=== PATIENT | male | born 1990 | race Caucasian/White ===

== ENCOUNTER 2018-08-01 16:38 | Emergency (ER) | payer OTHER ==
[2018-08-01 16:48] VITALS: BP 129/71
--- NOTE | 2018-08-01 16:48 | ED Physician Documentation ---
PD HPI LOWER EXT INJURY - Stated complaint Stated Complaint: L KNEE PX - Chief complaint Chief Complaint: Trauma Ext - History obtained from History obtained from: Patient - History of Present Illness PD HPI LOW EXT INJURY LOCATION: Left, Knee Type of injury: Twist (He was running for his physical training at work and had an abrupt feeling of a pull and pain in the posterior lower thigh and then into the knee area. He states his knee gave out on him and he fell forward. He had a slight twisting to it as well. He is having pain with walking. He denies any feeling of giving out or unreliability of the knee. He has had a prior ACL repair years ago. Is not sure the technique used whether it was a hamstring or such. He is concerned about injury to the ACL again.) Where injury occurred: Work Timing - onset: Today Worsened by: Moving, Other (walking) Associated symptoms: Swelling (lateral aspect of the knee.). No: Weakness, Numbness Contributing factors: Prior ortho surgery (ACL repair) Recently seen: Not recently seen Review of Systems Skin: denies: Abrasion (s), Laceration (s) Neurologic: denies: Focal weakness, Numbness PD PAST MEDICAL HISTORY - Past Medical History Cardiovascular: None Respiratory: None Neuro: None Endocrine/Autoimmune: None - Past Surgical History Ortho: ACL reconstruction - Present Medications Home Medications: Ambulatory Orders Medication Instructions Recorded Confirmed Naproxen 500 mg PO BID #20 tablet 08/01/18 - Allergies Allergies/Adverse Reactions: Allergies Allergy/AdvReac Type Severity Reaction Status Date / Time No Known Drug Allergies Allergy Verified 08/01/18 16:47 PD ED PE NORMAL - Vitals Vital signs reviewed: Yes - General General: Alert and oriented X 3, No acute distress, Well developed/nourished - Derm Derm: Normal color, Warm and dry, No rash - Extremities Extremities: No edema, Other (There is perhaps a slight effusion of the left knee but very minimal. There is some laxity for stress testing of the ACL but it does not cause any pain. Realistically it may not hurt if he has had an ACL reconstruction so may not have the same pain fibers. There is no laxity nor pain for collateral ligament testing.Meniscal stress testing does not cause any pain. There is no clicking or popping with range of motion. The hamstrings are not tender.) Results - Vitals Vitals: Vital Signs - 24 hr 08/01/18 16:45 Temperature 37.0 C Heart Rate 110 H Respiratory 12 Rate Blood Pressure 129/71 O2 Saturation 99 Oxygen O2 Source Room air - Rads (name of study) left knee Radiology: Prelim report reviewed, EMP read contemporaneously, See rad report PD MEDICAL DECISION MAKING - ED course Complexity details: reviewed results (Since he has had a prior ACL repair with some pins to hold it, I did get an x-ray to see if there is any dislodgment of those. Otherwise he may have some ACL strain but I do not appreciate a tear per se. I think his symptoms are more likely to have been a hamstring strain. There is slight tenderness at the lateral hamstring but no laxity. There is very slight effusion in the knee. We will give him a knee brace. He did not feel he needed crutches. We will have him take some anti-inflammatories. [place] or orthopedics next week for reevaluation and reexam of the knee. The screws and pins appear in place. No acute bony abnormality.) Departure - Departure Disposition: 01 Home, Self Care Clinical Impression: Knee sprain Qualifiers: Encounter type: initial encounter Involved ligament of knee: unspecified ligament Laterality: left Qualified Code(s): S83.92XA - Sprain of unspecified site of left knee, initial encounter Condition: Stable Record reviewed to determine appropriate education?: Yes Instructions: ED Sprain Knee Follow-Up: SHANIKA Dempsey [Provider Group] Prescriptions: Naproxen 500 mg PO BID #20 tablet Comments: The pin and screw appear in place on your x-ray. Consider the possibility of a hamstring strain or even meniscal type problem. There is a little bit of laxity of your ACL on exam but that may be just postoperative. At this point I would have you use the knee brace when up and around for the next 5 days or so. Use some anti-inflammatories such as naproxen twice daily. Add Tylenol if needed for pain. Follow-up with your primary care or orthopedics early next week for reexam and see if it needs further treatment. If it is a simple sprain it may be doing much better by that time. Forms: Activity restrictions Discharge Date/Time: 08/01/18 18:09
[2018-08-01] MEDS ORDERED: NAPROXEN 250 MG TABLET PO STA (17:05)
--- NOTE | 2018-08-01 17:52 | XRAY Report ---
Reason: knee injury while running today Procedure Date: 08/01/2018 Accession Number: [id number] / [id number] Procedure: XR - Knee 3 View LT CPT Code: FULL RESULT: EXAM: LEFT KNEE RADIOGRAPHY EXAM DATE: 08/01/2018 05:38 PM. CLINICAL HISTORY: Knee injury while running today. COMPARISON: None. TECHNIQUE: 3 views. FINDINGS: Bones: Prior fixation screw/metallic hardware seen at the medial left tibial condyle and distal left lateral femoral condyle. Joints: Suggestion of a small left knee joint effusion. Soft Tissues: Moderate soft tissue swelling is seen at the left knee. IMPRESSION: Suggestion of a small left knee joint effusion. No malalignment or acute displaced fracture. Hardware is well positioned. No uriel-hardware lucency to suggest loosening. RADIA
== END 2018-08-01 18:09 | disposition home or self-care (01) ==
LOC: ED 16:38
DX: S83.92XA Sprain of unspecified site of left knee, initial encounter (principal); X50.1XXA Overexertion from prolonged static or awkward postures, initial encounter; W18.30XA Fall on same level, unspecified, initial encounter; Y93.02 Activity, running; Y99.0 Civilian activity done for income or pay
CPT/HCPCS: 73562; 99283; A9270

== ENCOUNTER 2018-08-26 09:42 | Outpatient (CLI) | payer OTHER ==
--- NOTE | 2018-08-26 15:43 | MRI Report ---
Reason: PAIN IN LEFT KNEE Procedure Date: 08/26/2018 Accession Number: [id number] / [id number] Procedure: MRI - Knee LT W/O CPT Code: FULL RESULT: EXAM: LEFT KNEE MRI WITHOUT CONTRAST EXAM DATE: 08/26/2018 10:48 AM. CLINICAL HISTORY: Pain in left knee. COMPARISON: Left knee 3 views 08/01/2018. TECHNIQUE: Multiplanar, multisequence T1-weighted and fluid-sensitive sequences of the knee without contrast. Other: None. FINDINGS: Bones and Articular Cartilage: Marginal osteophytes at the femoral condyles, patella, and femoral trochlea. There is a nondisplaced, acute or subacute-appearing fracture at the anterior aspect of the lateral tibial plateau. Bone contusion at the anterior aspect of the medial femoral condyle. Grade 2 chondromalacia at the posterior aspect of the lateral tibial plateau. Postoperative changes at the distal femur and proximal tibia from previous ACL reconstruction. Metallic hardware at the proximal tibia. Focal full-thickness articular cartilage fissure or delamination injury at the median ridge of the patella. Medial Meniscus: Vertically oriented peripheral tear at the posterior third of the posterior horn. There is a small 7 x 2 x 3 mm ossicle adjacent to the posterolateral aspect of the posterior horn. Lateral Meniscus: Vertically oriented tear at the posterior horn. Free edge fraying at the posterior horn. Cruciate Ligaments: Degenerative signal within the ACL graft. The posterior cruciate ligament is unremarkable. Collateral Ligaments: The medial collateral and lateral collateral ligamentous structures are intact. Tendons: The quadriceps, patellar, semimembranosus, and popliteus tendons are unremarkable. Musculature: No edema or fatty atrophy. Other: Small joint effusion. Small popliteal cyst. There is an approximately 5 x 5 x 5 mm loose body at the posteromedial aspect of the lateral compartment (coronal image 21, sagittal image 13, and axial image 14). The medial and lateral retinacula are intact. Scar tissue at the infrapatellar fat pad. IMPRESSION: 1. Tricompartmental osteoarthritis. 2. Nondisplaced, acute or subacute fracture at the anterior aspect of the lateral tibial plateau. 3. Previous ACL reconstruction. The ACL graft is degenerated, but intact. 4. Vertically oriented peripheral tear at the posterior third of the posterior horn medial meniscus. Small ossicle adjacent to the posterolateral aspect of the posterior horn medial meniscus. 5. Vertically oriented tear at the middle third of the posterior horn lateral meniscus. Free edge fraying at the posterior horn lateral meniscus. 6. Small joint effusion and popliteal cyst. 7. Loose body at the posteromedial aspect of the lateral joint compartment. RADIA
== END 2018-08-26 09:43 | disposition home or self-care (01) ==
LOC: DI 09:42
PROVIDERS: ATTEND Family Medicine
DX: S82.145A Nondisplaced bicondylar fracture of left tibia, initial encounter for closed fracture (principal); S83.242A Other tear of medial meniscus, current injury, left knee, initial encounter; S83.282A Other tear of lateral meniscus, current injury, left knee, initial encounter; M17.12 Unilateral primary osteoarthritis, left knee; M71.22 Synovial cyst of popliteal space [Baker], left knee

== ENCOUNTER 2019-01-31 08:28 | Day surgery (SDC) | payer OTHER ==
--- NOTE | 2019-01-31 08:28 | ANESTHESIA ---
Pre-Anesthesia VS, & Labs - Diagnosis L knee meniscus and ACL tears - Procedure L achilles tendon repair Vital Signs: Last Vital Signs Temp 36.5 C 01/31/19 08:35 Pulse 74 01/31/19 08:35 Resp 16 01/31/19 08:35 BP 134/73 H 01/31/19 08:35 Pulse Ox 98 01/31/19 08:35 Height 5 ft 5 in Weight (kg) 81.65 kg Body Mass Index 29.9 - NPO >8 hours Home Medications and Allergies Home Medications: Ambulatory Orders No Known Home Medications 01/23/19 No Known Home Medications 01/23/19 Allergies/Adverse Reactions: Allergies Allergy/AdvReac Type Severity Reaction Status Date / Time No Known Drug Allergies Allergy Verified 01/23/19 12:23 Anes History & Medical History - Anesthetic History Anesthesia Complications: reports: No previous complications Family history of Anesthesia Complications: Denies Family history of Malignant Hyperthermia: Denies - Medical History Cardiovascular: reports: None Pulmonary: reports: None Gastrointestinal: reports: None Urinary: reports: None Neuro: reports: None Musculoskeletal: reports: Other Endocrine/Autoimmune: reports: None Skin: reports: None Smoking Status: Never smoker - Surgical History Orthopedic: ACL reconstruction Exam General: Alert, Oriented x3, Cooperative Dental: WNL Mouth Opening: Greater than 4 Fingerbreadths Neck Mobility: Normal Mallampati classification: I Thyromental Distance: 4-6 cm Respiratory: Lungs clear, Normal breath sounds, No respiratory distress Cardiovascular: Regular rate Neurological: Normal speech Mental/Cognitive Status: Alert/Oriented X3, Normal for patient Cognitive Status: Within normal limits Plan Anesthesia Type: General, Femoral Block Regional Block: Per Surgeon's request for Post Op pain control Consent for Procedure(s) Verified and Reviewed: Yes Code Status: Attempt Resuscitation ASA classification: 1-Healthy patient Is this case an emergency?: No
[2019-01-31] MEDS ORDERED: MIDAZOLAM 2 MG/2 ML VIAL IVP ONE (08:29)
[2019-01-31] MEDS ORDERED: DEXAMETHASONE 4 MG/ML VIAL IVP ONE (08:29)
[2019-01-31] MEDS ORDERED: PROPOFOL 200 MG/20 ML VIAL IVP ONE (08:29)
[2019-01-31] MEDS ORDERED: KETOROLAC 30 MG/ML VIAL IVP ONE (08:29)
[2019-01-31] MEDS ORDERED: HYDROmorphone 1 MG/ML SYRINGE IVP ONE (08:29)
[2019-01-31] MEDS ORDERED: LACTATED RINGERS 1,000 ML IV ONE ×2 (08:35→11:00)
[2019-01-31] MEDS ORDERED: EPINEPHrine 1 MG/ML AMP ONE (08:44)
[2019-01-31] MEDS ORDERED: CEFAZOLIN SODIUM IN 0.9 % NACL 2 GM/100 ML BAG IV ONE (08:53)
[2019-01-31] MEDS ORDERED: ROPIVACAINE 0.5% PF 20 ML AMPULE ONE (09:21)
[2019-01-31] MEDS: BUPIVACAINE 0.25% PF 30 ML VIAL ONE ×2 (10:06→12:08)
[2019-01-31] MEDS ORDERED: ONDANSETRON 4 MG/2 ML VIAL IVP PRN (12:25)
[2019-01-31] MEDS ORDERED: oxyCODONE 5 MG TABLET PO PRN (12:25)
[2019-01-31] MEDS: fentaNYL 100 MCG/2 ML VIAL ONE ×2 (12:36→12:41)
--- NOTE | 2019-01-31 12:49 | OPERATIVE REPORT ---
Operative Report - General Procedure Date: 01/31/19 - Procedure Note Estimated Blood Loss (mL): 25 - Other Other Information/Narrative: Date of Procedure: 31 January 2029 Planned Procedure: Left knee arthroscopy, medial and lateral meniscal repair versus debridement, possible revision ACL reconstruction using allograft Pre-op diagnosis: Left knee medial and lateral meniscal tears, possible ACL graft failure Procedure performed: Left knee arthroscopy, ACL graft debridement, lateral meniscal debridement, lateral femoral condyle chondroplasty, hardware removal, tibial bone grafting Post-op diagnosis: Left knee lateral meniscus degenerative tear, ACL graft incompetence, retained surgical hardware, cavitary bone loss proximal tibia Primary Surgeon: TAWANDA VILLALOBOS Secondary Surgeon: JOANNE GARCIA Anesthesia: General LMA EBL: 25 ml Tourniquet: 72 minutes, left thigh at 250mmHg. Examination Under Anesthesia: ROM equal to the contralateral side. Stable dial at 30 & 90 degrees. Stable to varus and valgus stressing at 0 & 30 degrees. 3B Funmilayo. Positive Pivot shift. Arthroscopic findings left knee: 1. Patella: Crabmeat chondral changes median ridge 2. Trochlea: Mild grooving 3. Medial Compartment: Widespread fissuring and thinning of the medial femoral condyle cartilage and medial tibial plateau cartilage, especially posteriorly. No peripheral tear of the medial meniscus was found on probing, the medial root was intact, the medial meniscus was stable to probing 4. Lateral Compartment: Significant degeneration of the posterior horn of the lateral meniscus, the root was stable to probing, the degenerative meniscal tissue was gently debrided using a sucker shaver. There was an unstable cartilage lesion of the lateral femoral condyle, this was debrided to stable edges, following debridement, the area measured approximately 15 mm medial to lateral, and 20 mm anterior to posterior. 5. ACL and PCL: The PCL was intact, the ACL graft was present, but under no tension and lax in anatomic position of the knee. An arthroscopic Funmilayo test was performed, with minimal tensioning of the graft despite approximately 15 mm anterior translation of the tibia. The graft was assessed as incompetent and debrided using a combination of radiofrequency ablation and the sucker shaver COMPLICATIONS: Bone loss of the proximal tibia surrounding the screw and washer construct upon removal. This defect was felt to be too close to the proposed tibial tunnel to safely complete the ACL reconstruction in 1 stage. I worried that either the tibial tunnel would sustain a blowout when the fixation was placed, or that in the process of drilling the tunnel, the tunnel would be sidewalls into the cavitary defect. Therefore the decision was made to bone graft the defect using cancellus chips and bone putty, in preparation for a second stage revision ACL reconstruction to be completed in approximately 4 to 6 months IMPLANTS: Magalie [employer] screw and spiked washer removed. No implants placed. Indications for surgery: 28-year-old [id number] male with a history of left ACL reconstruction in 2008. Following ACL reconstruction he had approximately 10 good years of relatively symptom-free activity to include cutting sports. In the summer 2018 he was running and sustained a hyper extension injury to the left knee with some audible pops. MRI was obtained which demonstrated medial and lateral meniscal tears, vertical, as well as suggestion of ACL graft laxity. He underwent physical therapy for rehabilitation with initial good improvement in symptoms from August through October, but had ongoing knee instability with an attempted return to run. The risks, benefits, and alternatives were discussed. Risks include pain, bleeding, infection, damage to nearby structures and cartilage, lack of symptom relief, need for further surgery, DVT, PE, stroke, and . Written consent was obtained. Procedure Details: The patient was met in the pre-operative hold area. Persistence of symptoms and consent was verified. The patient verified the surgical site as the left knee. The operative knee was initialed per our standard protocol using surgical marker. The patient then met with anesthesia and was brought back to the operating room. The patient was placed supine on the operating table. A general anesthetic was administered and LMA was placed. A well-padded tourniquet was placed on the left thigh. Following tourniquet placement, the left lower extremity was then prepped and draped in the usual sterile fashion. A surgical timeout was performed, verifying the correct patient, the correct procedure and surgical site. We confirmed that perioperative antibiotics had been administered. Everyone agreed to proceed. The Escmarch was used to exsanguinate the [] lower extremity and the tourniquet was raised. An 11 blade scalpel was used to make an anterolateral arthroscopic portal, the anteromedial was created using needle localization and direct visualization. The arthroscope was introduced into the knee and a diagnostic arthroscopy was performed with the above-stated findings. A limited debridement of the anterior fat pad was performed to improve visualization. The ACL graft was probed and found to be lax. It was debrided using radiofrequency ablation and sucker shaver. Debridement of notch osteophytes was performed using a 5.5 mm lizzette. The notch was then prepared in standard fashion in preparation for possible revision ACL reconstruction. Once the notch was prepared, we turned our attention to the lateral compartment where the sucker shaver was used to debride the torn meniscal tissue and debride the meniscus back to a stable rim. The arthroscopic probe was used to ensure that the remaining meniscal tissue was stable. A shaving chondroplasty of the lateral femoral condyle was performed. The arthroscopic instruments were then removed from the knee. An approximately 6 cm incision was made overlying the anteromedial tibia, and prominent tibial hardware. The skin was sharply dissected and the soft tissues were dissected using electrocautery. The screw and washer construct was easily exposed, and the screw was removed without difficulty using a large hex locomotive driver. We then used a combination of electrocautery, osteotomes, elevators, rongeurs and drills to free the spiked washer from the surrounding bone. The tourniquet was lowered. The spiked washer was eventually able to be extracted. However due to the length and density of the spikes, as the spiked washer was removed, some intercalary bone was also removed with it creating a defect. There was concern that this defect would be close to the proposed tibial tunnel for the revision graft. Therefore the decision was made to place the tibial aiming guide into the knee and pass the guidewire to more accurately assess the relationship between the tunnel and the area of bone loss. I identified the ACL footprint on the tibia and set the tibial guide at 55. I aimed to have the guide pin come out 7 mm anterior to the PCL and in line with the posterior borders of the anterior horn of the lateral meniscus, on the lateral border of the medial tibial spine. The guidewire was then brought into the joint. The knee was then straightened to confirm that it would not impinge on the notch. It appeared that the knee defect impinged or nearly impinged on the proposed bone tunnel, expected to be between 8 and 9 mm. I had concern that should we drill the tunnel, we may sustain a sidewall blowout during graft fixation or may sidewall into the defect during drilling. Therefore the d ecision was made to bone graft the defect and proceed with a two-stage ACL revision. The area was then gently prepped using a curette, and packed with a mixture of cancellus chips and bone putty. Keeping the finger over the bone graft, the wound was then irrigated. The fascia over the bone grafted area was closed with interrupted 0 Vicryl. The wound was then again irrigated and the skin was closed with interrupted 2-0 Vicryl for the subcutaneous tissues and 3-0 nylon interrupted mattress sutures for the skin. The portals were closed with 3-0 Monocryl. 0.25% Marcaine plain was injected into the periincisional soft tissues. The incisions were dressed with Xeroform gauze, 4x4 gauze, an ABD and CANDIDO stocking The surgical drapes were removed. The patient was awoken from anesthesia, transferred to the hospital bed, and taken to the PACU for recovery in good condition. Postoperative plan: 1. Discharge home from the same day surgery facility once the patient has met discharge criteria. 2. Advance weightbearing as tolerated, range of motion as tolerated, and wean from crutches as tolerated as gait normalizes. 3. Return to clinic in 5-7 days for wound check. Will start formal PT at that time. 4. Allow advancement of activities as tolerated 5. Plan for revision ACL reconstruction in 4-6 months.
[2019-01-31] MEDS ORDERED: oxyCODONE 5 MG TABLET ONE (13:24)
[2019-01-31 14:59] VITALS: BP 114/74
== END 2019-01-31 08:29 | disposition home or self-care (01) ==
LOC: SDS 08:28
PROVIDERS: ATTEND Orthopaedic Surgery
PROC: 0QPH04Z Removal of Internal Fixation Device from Left Tibia, Open Approach (ICD-10-PCS; 2019-01-31)
PROC: 0QUH0JZ Supplement Left Tibia with Synthetic Substitute, Open Approach (ICD-10-PCS; 2019-01-31)
PROC: 0SBD4ZZ Excision of Left Knee Joint, Percutaneous Endoscopic Approach (ICD-10-PCS; principal; 2019-01-31 09:30)
DX: T84.490A Other mechanical complication of muscle and tendon graft, initial encounter (principal); M23.252 Derangement of posterior horn of lateral meniscus due to old tear or injury, left knee; M89.762 Major osseous defect, left lower leg; Y83.2 Surgical operation with anastomosis, bypass or graft as the cause of abnormal reaction of the patient, or of later complication, without mention of misadventure at the time of the procedure; M17.12 Unilateral primary osteoarthritis, left knee

== ENCOUNTER 2019-08-29 08:04 | Day surgery (SDC) | payer OTHER ==
[~2019-08-29 08:04] MED LIST: BUPIVACAINE 0.25% PF 30 ML VIAL ONE; CEFAZOLIN SODIUM IN 0.9 % NACL 2 GM/100 ML BAG IV ONE; EPINEPHrine 1 MG/ML AMP ONE
[2019-08-29] MEDS ORDERED: LACTATED RINGERS 1,000 ML IV ONE ×2 (08:34→12:54)
--- NOTE | 2019-08-29 09:12 | ANESTHESIA ---
Pre-Anesthesia VS, & Labs - Diagnosis Ruptured left ACL - Procedure Left ACL repair Vital Signs: Temp Pulse Resp BP Pulse Ox 36.2 C L 79 16 133/86 H 99 08/29/19 08:06 08/29/19 08:06 08/29/19 08:06 08/29/19 08:06 08/29/19 08:06 Height 5 ft 5 in Weight (kg) 81.65 kg Body Mass Index 29.9 - Lab Results Lab results reviewed: Yes Home Medications and Allergies No Known Home Medications 01/23/19 Allergies/Adverse Reactions: Allergies Allergy/AdvReac Type Severity Reaction Status Date / Time No Known Drug Allergies Allergy Verified 08/13/19 11:00 Anes History & Medical History - Anesthetic History Anesthesia Complications: reports: No previous complications Family history of Anesthesia Complications: Denies Family history of Malignant Hyperthermia: Denies - Medical History Cardiovascular: reports: None Pulmonary: reports: None Gastrointestinal: reports: None Urinary: reports: None Neuro: reports: None Musculoskeletal: reports: Other Endocrine/Autoimmune: reports: None Blood Disorders: reports: None Skin: reports: None Smoking Status: Never smoker - Surgical History Orthopedic: Other Exam General: Alert, Oriented x3 Dental: WNL Mouth Openin Fingerbreadth Mallampati classification: I Thyromental Distance: 4-6 cm Respiratory: Lungs clear Cardiovascular: Regular rate Plan Anesthesia Type: General, Adductor Block Regional Block: Per Surgeon's request for Post Op pain control Consent for Procedure(s) Verified and Reviewed: Yes Code Status: Attempt Resuscitation ASA classification: 1-Healthy patient Is this case an emergency?: No
[2019-08-29] MEDS ORDERED: MIDAZOLAM 2 MG/2 ML VIAL IVP ONE (10:00)
[2019-08-29] MEDS ORDERED: ONDANSETRON 4 MG/2 ML VIAL IVP ONE (10:00)
[2019-08-29] MEDS ORDERED: LIDOCAINE-MPF 2% 5 ML VIAL IM ONE (10:00)
[2019-08-29] MEDS ORDERED: PROPOFOL 200 MG/20 ML VIAL IVP ONE (10:00)
[2019-08-29] MEDS ORDERED: fentaNYL 100 MCG/2 ML VIAL IVP ONE (10:00)
[2019-08-29] MEDS ORDERED: DEXAMETHASONE 4 MG/ML VIAL IVP ONE (10:00)
[2019-08-29] MEDS ORDERED: SODIUM CHLORIDE 0.9% 10 ML ONE (10:33)
[2019-08-29] MEDS ORDERED: BACITRACIN 50,000 UNIT VIAL ONE (10:33)
[2019-08-29] MEDS ORDERED: BUPIVACAINE 0.25% PF 10 ML VIAL SUBQ ONE ×2 (10:52)
[2019-08-29] MEDS ORDERED: BACITRACIN 50,000 UNIT VIAL IM ONE (12:25)
[2019-08-29] MEDS ORDERED: ONDANSETRON 4 MG/2 ML VIAL IVP PRN (14:15)
[2019-08-29] MEDS ORDERED: oxyCODONE 5 MG TABLET PO PRN (14:15)
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
[2019-08-29] MEDS ORDERED: KETOROLAC 30 MG/ML VIAL ONE (14:24)
[2019-08-29] MEDS: HYDROmorphone 1 MG/ML CARPUJECT ONE ×5 (14:39→15:04)
[2019-08-29] MEDS ORDERED: oxyCODONE 5 MG TABLET ONE ×2 (15:29→16:10)
--- NOTE | 2019-08-29 15:36 | XRAY Report ---
PROCEDURE: Knee 2 View LT INDICATIONS: s/p revision ACL reconstruction. TECHNIQUE: 2 views of the left knee(s) were acquired. COMPARISON: None. FINDINGS: A brace obscures visualization on the lateral view. Bones: No fractures or dislocations. No suspicious bony lesions. ACL reconstruction. Mild tricompa rtmental periarticular osteophyte formation. Soft tissues: No joint effusion. No suspicious soft tissue calcifications. IMPRESSION: Postsurgical sequelae. Osteoarthritis. Reviewed by: Corinne Chambers MD on 08/29/2019 3:34 PM PDT Approved by: Corinne Chambers MD on 08/29/2019 3:34 PM PDT Station ID: [id number]
[2019-08-29 16:35] VITALS: BP 119/68
== END 2019-08-29 08:05 | disposition home or self-care (01) ==
LOC: SDS 08:04
PROVIDERS: ATTEND Orthopaedic Surgery
DX: T84.418A Breakdown (mechanical) of other internal orthopedic devices, implants and grafts, initial encounter (principal); Y83.2 Surgical operation with anastomosis, bypass or graft as the cause of abnormal reaction of the patient, or of later complication, without mention of misadventure at the time of the procedure

== ENCOUNTER 2020-03-15 12:46 | Outpatient (CLI) | payer OTHER ==
--- NOTE | 2020-03-15 15:05 | MRI Report ---
PROCEDURE: Knee LT W/O INDICATIONS: INSTABILITY L KNEE TECHNIQUE: Noncontrast sagittal PD fast spin echo and T2 fast spin echo with fat saturation, sagittal 3-D gradie nt sequence with fat saturation; coronal T1 spin echo and PD fast spin echo with fat saturation, and axial PD fast spin echo with fat saturation through the knee. COMPARISON: Knee radiograph dated 08/29/2019 and MRI of left knee dated 08/26/2018. FINDINGS: Image quality: Diagnostic. Susceptibility artifacts from prior knee surgery are seen. Menisci: There is no evidence of medial meniscal tear. Suggestion of oblique tear involving posterior horn of lateral meniscus is seen extending to inferior articulating surface. Peripheral displacement of lateral meniscus bowing lateral collateral ligament is also seen.. The meniscal root ligaments a ppear intact. Cruciate ligaments: Patient is status post prior ACL reconstruction surgery with postsurgical changes . There is complete disruption of the ACL graft near its midportion. PCL is grossly intact. Medial structures: The medial collateral ligament appears mildly thickened. The posterior oblique li gament, semimembranosus tendon insertions, and oblique popliteal ligament, and meniscocapsular juncti on appear intact. Visualized portions of the pes anserinus tendons appear normal. No abnormal bursa l fluid. Lateral structures: Sprain/low-grade partial thickness tear involving lateral collateral ligament is seen. The popliteus tendon appears normal; the popliteofibular ligament appears intact. The posteros uperior and anteroinferior popliteomeniscal fascicles appear intact. The arcuate and fabellofibular ligaments appear intact, around the lateral inferior geniculate artery. Iliotibial band appears norm al. Anterior structures: The quadriceps and patellar tendons appear intact. Patellar alignment is elin l. No femoral trochlear dysplasia or ventral trochlear prominence. No edema in the infrapatellar fa t pad. Bones and cartilage: There is anterior translation of proximal tibia in relation to distal femur. Pos tsurgical changes are noted in lateral femoral condyle and medial portion of proximal tibia. No gross marrow edema. No acute fracture or dislocation. Low-grade chondromalacia is seen in lateral femoral tibial compartment. Articulating cartilages in medial femoral tibial compartment and patellofemoral c ompartment are intact. Joint space: There is moderate amount of joint fluid, no gross intra-articular loose body. Tiny popl iteal cyst is seen. Normal appearing synovial plicae are incidentally noted. IMPRESSION: 1. Prior ACL repair with postsurgical changes. No gross marrow edema. No acute fracture or dislocatio n. 2. Anterior translation of proximal tibia in relation to distal femur. Full-thickness rupture of ACL graft near its midportion. PCL is intact. 3. No evidence of focal medial meniscal tear. Suggestion of complex oblique tear involving posterior horn of lateral meniscus extending to inferior articulating surface. 4. Very low-grade MCL sprain. Low-grade LCL sprain/partial thickness tear. 5. Moderate amount of joint fluid. Small popliteal cyst. Reviewed by: Malick Nolan MD on 03/15/2020 3:03 PM PST Approved by: Malick Nolan MD on 03/15/2020 3:03 PM PST Station ID: [id number]
== END 2020-03-15 12:47 | disposition home or self-care (01) ==
LOC: DI 12:46
PROVIDERS: ATTEND Orthopaedic Surgery
DX: M25.362 Other instability, left knee (principal); S83.422A Sprain of lateral collateral ligament of left knee, initial encounter; S83.412A Sprain of medial collateral ligament of left knee, initial encounter; M71.22 Synovial cyst of popliteal space [Baker], left knee